=== PATIENT | male | born 1950 | race Caucasian/White ===

== ENCOUNTER 2020-03-01 01:05 | Inpatient (IN) | payer OTHER, MEDICAID ==
[~2020-03-01] VITALS: Ht 175.3 cm; Wt 92.3 kg
--- NOTE | 2020-03-01 01:20 | NUR ---
PT [id number] FOR FLU LIKE SYMPTOMS [id number]. SOB X1 DAY 89% RA PER RA. PT ON 4L NC. O2 97%.pT A&OX4. PT WAS COVID NEGATIVE TWO WEEKS AGO. PER RA, PT GIVEN FLUIDS IN THE FIELD D/T TACHYCARDIA. PT BREATHING WITH SOME MILD DIFFICULTY. PT PLACED IN UPRIGHT SEATED POSTION. PT SKIN IS WARM AND DRY PT ATTACHED TO MONITOR AND POX WITH CALL LIGHT WITHIN REACH.
[2020-03-01] MEDS ORDERED: LEVOFLOXACIN 750 MG /D5W 150ML 150 ML IV ONE ×2 (02:00→02:15)
--- NOTE | 2020-03-01 02:12 | NUR ---
COVID SWAB SENT TO LAB
--- NOTE | 2020-03-01 02:12 | NUR ---
PELLETIZER AT BEDSIDE. BLOOD AND BLOOD CULTURES OBTAINED AND SENT TO LAB
[2020-03-01 02:24] LABS: BASOPHILS # (AUTO) 0.1 /CMM (0.0-0.2); BASOPHILS % (AUTO) 1.5 % (0.0-2.0); HEMATOCRIT 41 % (39-51); HEMOGLOBIN 13.9 g/dL (13.5-17.5); LYMPHOCYTES # (AUTO) 0.7 /CMM (0.8-4.8); LYMPHOCYTES % (AUTO) 8.4 % (20.0-44.0); MEAN CORPUSCULAR HGB CONC 34 g/dl (31.0-36.0); MEAN CORPUSCULAR VOLUME 98 fL (80-96); MONOCYTES # (AUTO) 0.4 /CMM (0.1-1.30); NEUTROPHILS # (AUTO) 7.3 /CMM (1.8-8.9); NEUTROPHILS % (AUTO) 85.1 % (43.0-81.0); PLATELET COUNT (AUTO) 198 /CMM (150-450); WHITE BLOOD COUNT (AUTO) 8.6 K/uL (4.3-11.0)
[2020-03-01 02:40] LABS: CALCIUM, SERUM 7.9 mg/dL (8.5-10.1); CARBON DIOXIDE 23 mmol/L (21-32); CHLORIDE 102 mmol/L (98-107); CREATININE 1.9 mg/dL (0.6-1.3); GLUCOSE 81 mg/dL (74-106); POTASSIUM 4.1 mmol/L (3.5-5.1); SODIUM SERUM 138 mmol/L (136-145); UREA NITROGEN, BLOOD 31 mg/dL (7-18)
--- NOTE | 2020-03-01 02:46 | NUR ---
CALL FROM LAB. RAPID COVID POSITIVE.
[2020-03-01 02:47] LABS: ALANINE AMINOTRANSFERASE 40 U/L (12-78); ALBUMIN 3.2 g/dL (3.4-5.0); ALKALINE PHOSPHATASE 68 U/L (46-116); ASPARTATE AMINOTRANSFERASE 60 U/L (15-37); B-TYPE NATRIURETIC PEPTIDE 78 PG/ML (0-125); BILIRUBIN,DIRECT 0.3 mg/dL (0.0-0.2); BILIRUBIN,TOTAL 0.6 mg/dL (0.2-1.0); TOTAL PROTEIN, SERUM 7.3 g/dL (6.4-8.2)
--- NOTE | 2020-03-01 02:59 | NUR ---
THIBODEAUX EPRP PAGED PER DR MANE.
[2020-03-01 03:00] LABS: ABG BASE EXCESS -7.2 mmol/L; ABG OXYGEN SATURATION 92.3 % (92.0-98.5); ABG PCO2 22.5 mmHg (35.0-45.0); ABG PO2 64.4 mmHg (75.0-100.0); AaDO2 194.9 mmHg; COHb 0.5 % (0.5-1.5); MetHb 0.3 % (0.0-1.5); O2Hb 91.6 % (94.0-97.0); SITE, ABG Right Radial; VENT MODE, BG 5LPM NC
[2020-03-01] MEDS ORDERED: IV NS 0.9% 1,000 ML BAG IV ONE (03:00)
[2020-03-01 03:01] LABS: CREATINE KINASE, TOTAL 564 U/L (39-308); FERRITIN 881 ng/mL (8-388)
[2020-03-01 03:05] LABS: D-DIMER 1.13 mg/L(FEU (0.17-0.50)
--- NOTE | 2020-03-01 03:08 | NUR ---
SHAHIDP CARLOS EDUARDO KRAMER SPEAKING TO DR. MANE REGARDING PLAN OF CARE.
[2020-03-01 03:19] LABS: C-REACTIVE PROTEIN 18.1 mg/dL (0.0-0.9)
[2020-03-01] MEDS ORDERED: ENOXAPARIN SODIUM 80 MG/0.8 ML DISP.SYRIN SQ SCH (03:30)
[2020-03-01] MEDS ORDERED: ENOXAPARIN SODIUM 100 MG/ML DISP.SYRIN SQ ONE (04:28)
[2020-03-01] MEDS ORDERED: ACETAMINOPHEN 650 MG/SUPP.RECT RC PRN (05:30)
[2020-03-01] MEDS ORDERED: ONDANSETRON HCL/PF 4 MG/2 ML VIAL IVP PRN (05:30)
[2020-03-01] MEDS ORDERED: ALBUTEROL SULFATE 8 GM HFA.AER.AD IH PRN (05:30)
--- NOTE | 2020-03-01 07:36 | NUR ---
GAVE REPORT TO ALEJO JESUS FOR ALVARO
--- NOTE | 2020-03-01 08:26 | NUR ---
DR VILLAGRAN AT BEDSIDE. VERBAL ORDER RECEIVED TO GIVE IMODIUM 2MG PO X 1 FOR DIARRHEA. NOTED AND CARRIED OUT
[2020-03-01] MEDS ORDERED: LOPERAMIDE HCL (2 MG CAP) 2 MG CAPSULE PO ONE (08:30)
[2020-03-01] MEDS ORDERED: DOXYCYCLINE HYCLATE (100 MG) 100 MG TABLET ONE (08:43)
[2020-03-01] MEDS ORDERED: LOPERAMIDE HCL (2 MG CAP) 2 MG CAPSULE ONE (08:43)
[2020-03-01] MEDS ORDERED: ACETAMINOPHEN 325 MG TABLET ONE (08:43)
[2020-03-01] MEDS: DOXYCYCLINE HYCLATE (100 MG) 100 MG TABLET PO SCH ×2 (08:55→20:34)
[2020-03-01] MEDS: ACETAMINOPHEN 325 MG TABLET PO PRN (08:56)
--- NOTE | 2020-03-01 08:56 | NUR ---
PT WAS GIVEN TYLENOL 650MG PO FOR HEADACHE.
[2020-03-01] MEDS ORDERED: AMPH20CA3 PO (09:58)
[2020-03-01] MEDS ORDERED: AMPH10CA3 PO (09:58)
[2020-03-01] MEDS ORDERED: ATOR10TA PO (09:58)
[2020-03-01] MEDS ORDERED: CLON1TAB12 PO (09:59)
[2020-03-01] MEDS ORDERED: WELLBUTRIN (09:59)
--- NOTE | 2020-03-01 10:05 | NUR ---
REPORT GIVEN TO ONIEL FOR ALVARO. AWAITNG TRANSFER TO FLOOR.
--- NOTE | 2020-03-01 10:20 | NUR ---
TELE/RN OPENING NOTE THE PATIENT IS BROUGHT ON A GURNEY FROM ER. THE PATIENT IS AMBULATORY AND WALKED TO BED HIMSELF WITH SUPERVISION. PATIENT IS ALERT AND ORIENTED X4. DENIES PAIN. NOTED SOB WITH EXERTION. RESPIRATION REGULAR. PATIENT IS ON OXYGEN AT 5L/MIN VIA SIMPLE MASK. LEFT HAND G 18 PATENT AND SALINE LOCKED. BED LOW AND LOCKED. SIDE RAILS UP X2. CALL LIGHT WITHIN REACH. WILL CONTINUE TO MONITOR.
--- NOTE | 2020-03-01 10:26 | NUR ---
pt transport ed to unit on [facility] with RN and emt at bedside w/ acls protocol. nad noted during transport. ambulated from gurney to bed w/o assist
[2020-03-01 10:30] VITALS: BP 102/70
[2020-03-01] MEDS: CEFTRIAXONE 1 G in IV D5W 50 ML IV SCH (11:57)
--- NOTE | 2020-03-01 11:58 | NUR ---
RN NOTE PHARAMEZRA JUST DELIVERED ROCEPHIN 1 G THAT WAS DUE AT 0900.
[2020-03-01] MEDS: DEXAMETHASONE SOD PHOSPHATE 10 MG/ML VIAL IV SCH (11:59)
[2020-03-01 12:00] VITALS: BP 111/75
--- NOTE | 2020-03-01 15:26 | NUR ---
TELE/RN NOTE DR VILLAGRAN IS MADE OF PATIENT HAVING EPISODES OF LOOSE STOOL (X3), HOWEVER, MD STATED NOT TO COLLECT STOOL BECAUSE IT IS MOST LIKELY RELATED TO COVID-19, AND THE MD ORDERED IMODIUM 2MG PO ONCE PRN. NOTED AND CARRIED OUT.
[2020-03-01] MEDS ORDERED: LOPERAMIDE HCL (2 MG CAP) 2 MG CAPSULE PO PRN (15:30)
[2020-03-01 15:57] VITALS: BP 96/58
--- NOTE | 2020-03-01 18:58 | NUR ---
TELE/RN CLOSING NOTE THE PATIENT IS ALERT AND ORIENTED X4. DENIES PAIN. PATIENT IS RECEIVING OXYGEN AT 4L/MIN VIA NASAL CANNULA AND SATURATION IS AT 94%. DENIES SOB. RESPIRATION REGULAR AND UNLABORED. LEFT HAND G 18 PATENT AND SALINE LOCKED. BED LOW AND LOCKED. SIDE RAILS UP X2. CALL LIGHT WITHIN REACH. WILL ENDORSE TO ASSISTANT PROFESSOR NURSE EDUCATION.
[2020-03-01] MEDS ORDERED: clonazePAM 1 MG TABLET PO SCH (19:30)
[2020-03-01] MEDS: HEPARIN SODIUM, PORCINE 5000 UNITS/1 ML VIAL SQ SCH (20:34)
[2020-03-01 21:35] VITALS: BP 103/65
[2020-03-02 02:12] VITALS: BP 103/61
[2020-03-02] MEDS: ZOLPIDEM TARTRATE 5 MG TABLET PO PRN ×2 (02:44→21:33)
[2020-03-02 05:11] VITALS: BP 113/77
[2020-03-02 07:24] LABS: BASOPHILS % (AUTO) 0.1 % (0.0-2.0); HEMATOCRIT 39 % (39-51); HEMOGLOBIN 13.4 g/dL (13.5-17.5); LYMPHOCYTES # (AUTO) 0.8 /CMM (0.8-4.8); LYMPHOCYTES % (AUTO) 5.4 % (20.0-44.0); MEAN CORPUSCULAR HGB CONC 34 g/dl (31.0-36.0); MEAN CORPUSCULAR VOLUME 96 fL (80-96); MONOCYTES # (AUTO) 0.5 /CMM (0.1-1.30); MONOCYTES % (AUTO) 3.5 % (2.0-12.0); NEUTROPHILS # (AUTO) 14.2 /CMM (1.8-8.9); PLATELET COUNT (AUTO) 238 /CMM (150-450); RED BLOOD CELL COUNT(AUTO) 4.07 MIL/uL (4.5-6.0); WHITE BLOOD COUNT (AUTO) 15.5 K/uL (4.3-11.0)
--- NOTE | 2020-03-02 07:43 | NUR ---
SUPPORT COORDINATOR OPENING NOTES RECEIVED PATIENT IN BED, AWAKE, A/O X4. PATIENT ON OXYGEN THERAPY AT 4 LPM VIA NASAL CANULA; BREATHING EVEN AND UNLABORED AT THIS TIME; NO SOB NOTED. NO COMPLAINS OF PAIN. L HAND IV ACCESS G#18 PRESENT AND INTACT. SAFETY PRECAUTIONS IN PLACE; BED IN LOW POSITION AND LOCKED, RAILS UP X2, CALL LIGHT WITHIN REACH. WILL CONTINUE TO MONITOR PATIENT.
[2020-03-02 08:05] LABS: ALBUMIN 2.9 g/dL (3.4-5.0); BILIRUBIN,TOTAL 0.6 mg/dL (0.2-1.0); CALCIUM, SERUM 8.5 mg/dL (8.5-10.1); CREATININE 1.6 mg/dL (0.6-1.3); MAGNESIUM 1.7 mg/dL (1.8-2.4); PHOSPHORUS 2.8 mg/dL (2.5-4.9); POTASSIUM 4.2 mmol/L (3.5-5.1); TOTAL PROTEIN, SERUM 7.1 g/dL (6.4-8.2)
[2020-03-02] MEDS: DOXYCYCLINE HYCLATE (100 MG) 100 MG TABLET PO SCH ×2 (08:25→21:33)
[2020-03-02] MEDS: DEXAMETHASONE SOD PHOSPHATE 10 MG/ML VIAL IV SCH (08:25)
[2020-03-02] MEDS: HEPARIN SODIUM, PORCINE 5000 UNITS/1 ML VIAL SQ SCH ×2 (08:27→21:33)
--- NOTE | 2020-03-02 09:31 | NUR ---
CRUTCH MAKER NOTES PATIENT COMPLAINING OF NAUSEA AND VOMITING; ONE EMESIS PRESENT. PRN ZOFRAN ADMINISTERED PER MD ORDER. WILL REASSESS.
[2020-03-02] MEDS: CEFTRIAXONE 1 G in IV D5W 50 ML IV SCH (10:08)
[2020-03-02 10:16] VITALS: BP 119/76
[2020-03-02] MEDS ORDERED: clonazePAM 1 MG TABLET PO SCH (10:30)
[2020-03-02] MEDS ORDERED: Magnesium 1GM/D5W 100ML PREMIX 100 ML IV SCH (12:30)
[2020-03-02 16:00] VITALS: BP 136/76
[2020-03-02] MEDS ORDERED: [UNRECOGNIZED DRUG - OTHER] PO SCH (18:00)
[2020-03-02] MEDS ORDERED: AMPHET ASP PO SCH (18:00)
[2020-03-02] MEDS ORDERED: D AMPHET PO SCH (18:00)
[2020-03-02] MEDS ORDERED: AMPHET PO SCH (18:00)
--- NOTE | 2020-03-02 19:10 | NUR ---
DRAG DOWN CLOSING NOTES PATIENT REMAINS IN BED, AWAKE, A/O X4. PATIENT ON OXYGEN THERAPY AT 4 LPM VIA NASAL CANULA; BREATHING EVEN AND UNLABORED DURING THE SHIFT; NO SOB NOTED. NO COMPLAINS OF PAIN DURING SHIFT. L HAND IV ACCESS G#18 PRESENT AND INTACT. ALL NEEDS ATTENDED THROUGHOUT THE DAY. SAFETY PRECAUTIONS IN PLACE; BED IN LOW POSITION AND LOCKED, RAILS UP X2, CALL LIGHT WITHIN REACH. WILL ENDORSE TO METER CHANGES RECORDS CLERK NURSE.
[2020-03-02 20:00] VITALS: BP 145/103
[2020-03-02] MEDS: ATORVASTATIN 10 MG TABLET PO SCH (21:33)
[2020-03-02] MEDS ORDERED: GABA-532 PO (21:46)
[2020-03-03] VITALS: BP 98/62
[2020-03-03] MEDS: LORAZEPAM 1 MG TABLET PO PRN ×3 (00:57→21:08)
[2020-03-03 04:00] VITALS: BP 103/58
--- NOTE | 2020-03-03 07:30 | NUR ---
TELE/RN OPENING NOTE Received patient sleeping in bed, easily arousable to verbal and tactile stimulation, A&O x 4. No complaints of pain/discomfort at this time. Breathing even and non-labored on 4L oxygen via NC, no SOB noted. No cardiac distress noted, on tele monitor reading SR 78. IV access noted on L hand 18, patent and intact, and flushing well. Bed locked to its lowest position, side rails x 2 up, call light in hand. Will continue with current medical management. Addendum: 03/03/20 at 0908 by KATHERINE HUGGINS RN CORRECTION: HEVER #[id number].
--- NOTE | 2020-03-03 07:45 | NUR ---
TELE/RN NOTE Saw Dr. Roland Dinh's order: "DNR/DNI per patient" on 03/01/2020. Verified the order with patient, states "Yes, I do not want to be intubated nor resuscitated. I spoke with the doctor about that two days ago." Notified Dr. Jones, signed POLST and placed on chart.
[2020-03-03 08:00] VITALS: BP 103/62
[2020-03-03 08:08] LABS: PTH, INTACT 27 pg/mL (15-65)
[2020-03-03 08:21] VITALS: BP 103/62
[2020-03-03] MEDS: CEFTRIAXONE 1 G in IV D5W 50 ML IV SCH (08:40)
[2020-03-03] MEDS: clonazePAM 1 MG TABLET PO SCH (08:41)
[2020-03-03] MEDS: DEXAMETHASONE SOD PHOSPHATE 10 MG/ML VIAL IV SCH (08:41)
[2020-03-03] MEDS: DOXYCYCLINE HYCLATE (100 MG) 100 MG TABLET PO SCH ×2 (08:41→20:17)
[2020-03-03] MEDS: HEPARIN SODIUM, PORCINE 5000 UNITS/1 ML VIAL SQ SCH ×2 (08:42→20:19)
[2020-03-03] MEDS ORDERED: AMPHET ASP PO SCH (09:00)
[2020-03-03] MEDS ORDERED: [UNRECOGNIZED DRUG - OTHER] PO SCH (09:00)
[2020-03-03] MEDS ORDERED: AMPHET PO SCH (09:00)
[2020-03-03] MEDS ORDERED: D AMPHET PO SCH (09:00)
[2020-03-03 09:06] LABS: BILIRUBIN,URINE NEGATIVE (NEGATIVE); COLOR,URINE YELLOW (YELLOW); LEUKOCYTE ESTERASE ,URINE NEGATIVE (NEGATIVE); NITRITE, URINE NEGATIVE (NEGATIVE); PH,URINE 5.5 (5.0-8.0); PROTEIN,URINE NEGATIVE (NEGATIVE); UGLUCOSE NEGATIVE (NEGATIVE); UROBILINOGEN,URINE 0.2 EU/dL (0.2)
[2020-03-03 10:30] LABS: CALCIUM, SERUM 8.5 mg/dL (8.5-10.1); CREATININE 1.4 mg/dL (0.6-1.3); MAGNESIUM 2.1 mg/dL (1.8-2.4); POTASSIUM 4.4 mmol/L (3.5-5.1)
[2020-03-03 12:41] LABS: BACTERIA,URINE Rare /HPF (None Seen); CREATININE, URINE 71.3 MG/DL (30.0-125.0); RBC,URINE 0-2 /HPF (0-2); SQUAMOUS EPITHELIAL CELL,UR Rare /HPF (None Seen); URINE TOTAL PROTEIN 32.6 mg/dL (0-11.9); WBC,URINE 0-2 /HPF (0-3)
--- NOTE | 2020-03-03 13:12 | NUR ---
TELE/RN NOTE Patient feeling anxious, states the need to take ativan 1 mg PRN. Administered ativan 1 mg PRN.
--- NOTE | 2020-03-03 16:00 | NUR ---
TELE/RN NOTE Patient appears more calm, resting in bed, easily arousable to touch and verbal stimulation.
[2020-03-03 16:01] LABS: EOSINOPHIL,URINE 1
--- NOTE | 2020-03-03 17:00 | NUR ---
TELE/RN NOTE Lab called asking if patient convalescent plasma can be thawed, notified Dr. Jones and states "hold off on plasma tonight, will see how he is doing tomorrow morning." Notified lab of Dr. Jones's orders.
--- NOTE | 2020-03-03 19:00 | NUR ---
TELE/RN CLOSING NOTE Patient resting in bed, easily arousable to verbal and tactile stimulation, A&O x 4. No complaints of pain/discomfort throughout shift. Breathing even and non-labored on RA, no SOB noted. No cardiac distress noted, on tele monitor reading SR 88. IV access noted on LAC $18, patent and intact, and flushing well. Fall precautions maintained. Will endorse to retail shift leader nurse.
--- NOTE | 2020-03-03 19:36 | NUR ---
TEL RN NOTES PATIENT IN BED, AWAKE, ALERT AND ORIENTED X 4. BREATHING EVEN AND UNLABORED ON ROOM AIR. SHOWS NO SIGNS OF ACUTE RESPIRATORY DISTRESS. NO ACUTE PAIN. TELE MONITOR SR. IV ON LAC 18 ITS CLEAN DRY AND INTACT. SHOWS NO SIGN OF INFILTRATION, NO REDNESS. SAFETY PRECAUTIONS IN PLACE. BED IN LOWEST POSITION, LOCKED, AND CALL LIGHT KEPT WITHIN REACH. WILL CONTINUE TO MONITOR.
[2020-03-03 20:00] VITALS: BP 125/84
[2020-03-03] MEDS: ATORVASTATIN 10 MG TABLET PO SCH (21:08)
[2020-03-03] MEDS: ZOLPIDEM TARTRATE 5 MG TABLET PO PRN (21:09)
[2020-03-04] VITALS: BP 106/63
[2020-03-04 04:00] VITALS: BP 111/62
[2020-03-04] MEDS: LORAZEPAM 1 MG TABLET PO PRN (05:23)
[2020-03-04] MEDS: ACETAMINOPHEN 325 MG TABLET PO PRN (05:45)
--- NOTE | 2020-03-04 06:56 | NUR ---
ASSEMBLY MEMBER NOTES PATIENT IN BED, AWAKE, ALERT AND ORIENTED X 4. BREATHING EVEN AND UNLABORED ON ROOM AIR. SHOWS NO SIGNS OF ACUTE RESPIRATORY DISTRESS. NO ACUTE PAIN. TELE MONITOR SR. IV ON LAC 18 ITS CLEAN DRY AND INTACT. SHOWS NO SIGN OF INFILTRATION, NO REDNESS. ALL DUE MEDICATIONS GIVEN. SAFETY PRECAUTIONS IN PLACE. BED IN LOWEST POSITION, LOCKED, AND CALL LIGHT KEPT WITHIN REACH. WILL ENDORSE TO ONCOMING NURSE.
--- NOTE | 2020-03-04 07:30 | NUR ---
TELE/RN OPENING NOTE Patient resting in bed, easily arousable to verbal and tactile stimulation, A&O x 4. No complaints of pain/discomfort throughout shift. Breathing even and non-labored on RA, no SOB noted. No cardiac distress noted, on tele monitor reading SR 79. IV access noted on LAC #18, patent and intact, and flushing well. Bed locked to its lowest position, side rails x 2 up, call light in hand. Will continue with current medical management.
[2020-03-04 08:00] VITALS: BP 132/70
[2020-03-04] MEDS: DOXYCYCLINE HYCLATE (100 MG) 100 MG TABLET PO SCH (08:19)
[2020-03-04] MEDS: DEXAMETHASONE SOD PHOSPHATE 10 MG/ML VIAL IV SCH (08:19)
[2020-03-04] MEDS: CEFTRIAXONE 1 G in IV D5W 50 ML IV SCH (08:19)
[2020-03-04] MEDS: clonazePAM 1 MG TABLET PO SCH (08:19)
[2020-03-04] MEDS: HEPARIN SODIUM, PORCINE 5000 UNITS/1 ML VIAL SQ SCH (08:21)
[2020-03-04 10:14] LABS: BASOPHILS % (AUTO) 0.1 % (0.0-2.0); HEMATOCRIT 37 % (39-51); HEMOGLOBIN 12.6 g/dL (13.5-17.5); LYMPHOCYTES # (AUTO) 0.7 /CMM (0.8-4.8); LYMPHOCYTES % (AUTO) 6.1 % (20.0-44.0); MEAN CORPUSCULAR HGB CONC 34 g/dl (31.0-36.0); MEAN CORPUSCULAR VOLUME 97 fL (80-96); MONOCYTES # (AUTO) 0.6 /CMM (0.1-1.30); MONOCYTES % (AUTO) 5.8 % (2.0-12.0); NEUTROPHILS # (AUTO) 9.7 /CMM (1.8-8.9); PLATELET COUNT (AUTO) 284 /CMM (150-450); RED BLOOD CELL COUNT(AUTO) 3.82 MIL/uL (4.5-6.0)
[2020-03-04 11:15] LABS: CALCIUM, SERUM 8.4 mg/dL (8.5-10.1); CREATININE 1.5 mg/dL (0.6-1.3); POTASSIUM 3.9 mmol/L (3.5-5.1)
[2020-03-04] MEDS ORDERED: METH4TAB3 PO (11:23)
[2020-03-04] MEDS ORDERED: ALBU18HF2 IH (11:23)
[2020-03-04 12:03] VITALS: BP 105/50
--- NOTE | 2020-03-04 13:00 | NUR ---
TELE/CONTACT CENTER SPECIALIST NOTE Patient picked up by friend Nirav Broussard. Patient remained stable throughout shift. No complaints of pain/discomfort noted. Breathing even and non-labored on RA, no SOB noted. No cardiac distress noted, removed tele leads off of patient skin, skin remains intact, no new skin impairments noted. IV access removed on LAC #18 with catheter intact, placed clean dry dressing and placed pressure on site with tape. Educated patient about discharge instructions, answered all his questions to his satisfaction. Patient verbalized understanding. Patient left safely along with hospital documents and belongings.
[2020-03-05 16:07] LABS: *SPE A/G RATIO 0.8 (0.7-1.7); *SPE ALPHA-1-GLOBULIN 0.5 g/dL (0.0-0.4); *SPE GLOBULIN, TOTAL 3.7 g/dL (2.2-3.9); *SPE M-SPIKE Not Observed g/dL (Not Observed); *SPEGAMMA GLOBULIN 1.3 g/dL (0.4-1.8)
== END 2020-03-04 13:00 | disposition home or self-care (01) | DRG 177 ==
LOC: ER 01:08 → TRANSITION 03:27 → TELE2 10:01
PROVIDERS: ADMIT Internal Medicine; ATTEND Internal Medicine
DX: U07.1 COVID-19 (principal); J12.82 Pneumonia due to coronavirus disease 2019; J96.01 Acute respiratory failure with hypoxia; N17.0 Acute kidney failure with tubular necrosis; Z66 Do not resuscitate; E78.5 Hyperlipidemia, unspecified; R74.01 Elevation of levels of liver transaminase levels; I12.9 Hypertensive chronic kidney disease with stage 1 through stage 4 chronic kidney disease, or unspecified chronic kidney disease; N18.9 Chronic kidney disease, unspecified
CPT/HCPCS: 36415; 36600; 71045-TC; 80048-TC; 80053-TC; 80076-TC; 81001; 82550-TC; 82553; 82570-TC; 82728-TC; 82803-TC; 83615-TC; 83735-TC; 83880; 83970; 84100-TC; 84155; 84155-TC; 84165; 84300-TC; 84484-TC; 85025-TC; 85378-TC; 85385-TC; 86140-TC; 86850-TC; 87040-TC; 87081-TC; C9803; G0378; J0696; J1100; J1644; J1650; J1956; J2405; J3475; J7030; J7050; J7060; U0003